=== PATIENT | male | born 1955 | race Caucasian/White ===

== ENCOUNTER 2016-07-16 07:30 | Day surgery (SDC) | payer OTHER ==
[2016-07-15 12:47] VITALS: BMI 28.4
[2016-07-16] MEDS ORDERED: FLURBIPROFEN 0.03% OPHTH SOLN 2.5 ML BOTTLE ONE (07:40)
[2016-07-16] MEDS ORDERED: PHENYLEPHRINE 2.5% OPHTH SOLN 15 ML BOTTLE ONE (07:41)
[2016-07-16] MEDS ORDERED: TROPICAMIDE 1% OPHTH SOLN 15 ML BOTTLE ONE (07:41)
[2016-07-16] MEDS ORDERED: CYCLOPENTOLATE HCL 1% OPHTH SOLN 2 ML BOTTLE ONE (07:41)
[2016-07-16] MEDS ORDERED: CIPROFLOXACIN 0.3% EYE DROPS 5 ML BOTTLE ONE (07:41)
[2016-07-16 07:43] VITALS: TEMP 97.7
[2016-07-16] MEDS ORDERED: PHENYLEPHRINE 2.5% OPHTH SOLN 15 ML BOTTLE OD ONE ×3 (07:55→08:10)
[2016-07-16] MEDS ORDERED: TROPICAMIDE 1% OPHTH SOLN 15 ML BOTTLE OD ONE ×3 (07:55→08:10)
[2016-07-16] MEDS ORDERED: FLURBIPROFEN 0.03% OPHTH SOLN 2.5 ML BOTTLE OD ONE ×3 (07:55→08:10)
[2016-07-16] MEDS ORDERED: CIPROFLOXACIN HCL 0.3% OPHTH 2.5ML BOTTLE OD ONE ×3 (07:55→08:10)
[2016-07-16] MEDS ORDERED: CYCLOPENTOLATE HCL 1% OPHTH SOLN 2 ML BOTTLE OD ONE ×3 (07:55→08:10)
[2016-07-16] MEDS ORDERED: MIDAZOLAM HCL 2 MG/2 ML SINGLE DOSE VIAL ONE (08:59)
[2016-07-16] MEDS ORDERED: CIPROFLOXACIN HCL 0.3% OPHTH 2.5ML BOTTLE OP SCH (09:00)
[2016-07-16] MEDS ORDERED: PHENYLEPHRINE 2.5% OPHTH SOLN 15 ML BOTTLE OP SCH (09:00)
[2016-07-16] MEDS ORDERED: TROPICAMIDE 1% OPHTH SOLN 15 ML BOTTLE OP SCH (09:00)
[2016-07-16] MEDS ORDERED: FLURBIPROFEN 0.03% OPHTH SOLN 2.5 ML BOTTLE OP SCH (09:00)
[2016-07-16] MEDS ORDERED: CYCLOPENTOLATE HCL 1% OPHTH SOLN 2 ML BOTTLE OP SCH (09:00)
[2016-07-16] MEDS ORDERED: LIDOCAINE HCL 4% TOPICAL SOLN (50 ML/BOTTLE) TP ONE (09:03)
[2016-07-16] MEDS ORDERED: CHONDROITIN SU A/HYALUR SOD 1 KIT IO ONE ×2 (09:11)
[2016-07-16] MEDS ORDERED: LIDOCAINE HCL 1% PRESERVATIVE FREE - 30ML VIAL IO ONE (09:11)
[2016-07-16] MEDS ORDERED: ACETAMINOPHEN 325 MG TABLET (FP) ONE (10:22)
[2016-07-16] MEDS ORDERED: ACETAMINOPHEN 325 MG TABLET (FP) PO ONE (10:24)
[2016-07-16 11:14] VITALS: BP 100/60; PULSE 90
--- NOTE | 2016-07-17 11:39 | SPEC ---
DATE OF OPERATION: 07/16/2016 PREOPERATIVE DIAGNOSIS: Cataract, right eye. POSTOPERATIVE DIAGNOSIS: Cataract, right eye. PROCEDURE: Planned phacoemulsification with posterior chamber lens implantation, right eye. ANESTHESIA: Topical. SURGEON: Dillon Snow MD ALARM TECHNICIAN: None. COMPLICATIONS: None. IMPLANT: Posterior chamber lens was model [id number], 17.5 diopters. There were no sutures placed. DISPOSITION: Patient went to the ambulatory unit in stable condition. PROCEDURE: The patient was taken to the operating room and anesthesia began with intravenous fluids and sedation. The patient then received topical anesthesia on the right eye. The patient was prepped and draped in the usual manner for sterile ophthalmic surgery. A speculum was inserted into the right eye. A self-sealing stab incision was made at the 3 o'clock and 10 o'clock positions. Viscoat was inserted into the anterior chamber. Using a 2.65-mm keratome, a self-sealing incision was made in temporal location into the anterior chamber. A 360-degree continuous capsulorrhexis was then performed. The nucleus was dislocated with hydrodissection. The nucleus was then removed from the eye with phacoemulsification with posterior capsule remaining intact. Irrigation and aspiration removed the remaining cortex from the eye. The capsule was polished. A posterior chamber lens was inserted in the bag and well centered. The remaining Viscoat was removed from the eye. The wound was self-sealing. Stromal hydration was performed for increased insurance of wound closure. The patient tolerated the procedure well and went to the ambulatory unit in stable condition. DILLON SNOW M.D. [id number]
== END 2016-07-16 11:05 | disposition home or self-care (01) ==
LOC: JASU-SURG 07:30
PROVIDERS: ATTEND Ophthalmology
PROC: 08RJ3JZ Replacement of Right Lens with Synthetic Substitute, Percutaneous Approach (ICD-10-PCS; principal; 2016-07-16 09:00)
DX: H26.9 Unspecified cataract (principal)